=== PATIENT | male | born 1950 | race Caucasian/White ===

== ENCOUNTER 2018-07-19 07:09 | Inpatient (IN) | payer OTHER ==
[~2018-07-19] VITALS: Ht 182.9 cm; Wt 105.9 kg
[~2018-07-19 07:09] MED LIST: BUPIVACAINE/PF-EPI 0.5% 1:200K ONE; CITA10TA4 PO; LISI40TA PO; moringa PO
[2018-07-19] MEDS ORDERED: LACTATED RINGERS 1,000 ML IV SCH (07:35)
[2018-07-19] MEDS ORDERED: GABAPENTIN 300 MG CAPSULE PO ONE (08:00)
[2018-07-19] MEDS ORDERED: LIDOCAINE-MPF 1%, 2ML INFIL ONE (08:00)
[2018-07-19] MEDS ORDERED: ACETAMINOPHEN 500 MG TABLET PO ONE (08:00)
[2018-07-19] MEDS ORDERED: FENTANYL PF 250 MCG/5ML ONE (08:21)
[2018-07-19] MEDS ORDERED: [UNRECOGNIZED DRUG - OTHER] ONE (08:41)
[2018-07-19] MEDS ORDERED: MEPERIDINE/PF 25MG/0.5ML IVPush PRN (10:00)
[2018-07-19] MEDS ORDERED: LABETALOL 5MG/ML, 20ML IV PRN (10:00)
[2018-07-19] MEDS ORDERED: PROMETHAZINE 25 MG/ML, 1ML IV PRN (10:00)
[2018-07-19] MEDS ORDERED: OXYcodone 5 MG/5 ML ORAL.SOL UDC PO PRN (10:00)
[2018-07-19] MEDS ORDERED: DIPHENHYDRAMINE 50 MG/ML, 1ML IVPush PRN (10:00)
[2018-07-19] MEDS ORDERED: hydrALAzine 20 MG/ML, 1ML IV PRN (10:00)
[2018-07-19] MEDS ORDERED: HYDROmorphone 1 MG/ML, 1ML IV PRN (10:00)
[2018-07-19] MEDS ORDERED: PROCHLORPERAZINE 5 MG/ML, 2ML IV PRN (10:00)
[2018-07-19] MEDS ORDERED: FENTANYL PF 100 MCG/2ML IV PRN (10:00)
[2018-07-19] MEDS ORDERED: INDOCYANINE GREEN 25 MG VIAL ONE (10:02)
[2018-07-19] MEDS ORDERED: FENTANYL PF 100 MCG/2ML ONE ×2 (10:31→12:13)
[2018-07-19] MEDS ORDERED: CEFAZOLIN 1,000 MG ONE (10:33)
[2018-07-19] MEDS ORDERED: PROPOFOL 10 MG/ML, 20ML ONE (10:33)
[2018-07-19] MEDS ORDERED: NEOSTIGMINE 1 MG/ML, 10ML ONE (10:33)
[2018-07-19] MEDS ORDERED: SUCCINYLCHOLINE 20 MG/ML, 10ML ONE (10:33)
[2018-07-19] MEDS ORDERED: GLYCOPYRROLATE 0.2MG/1ML, 5ML ONE (10:33)
[2018-07-19] MEDS ORDERED: DEXAMETHASONE 4 MG/ML, 1ML ONE (10:33)
[2018-07-19] MEDS ORDERED: ONDANSETRON 2MG/ML, 2ML ONE (10:33)
[2018-07-19] MEDS ORDERED: ROCURONIUM 10MG/ML,5ML ONE (10:33)
[2018-07-19] MEDS ORDERED: OXYcodone 5 MG/5 ML ORAL.SOL UDC ONE (12:13)
[2018-07-19] MEDS ORDERED: ONDANSETRON 2MG/ML, 2ML IV PRN (13:30)
[2018-07-19] MEDS ORDERED: MORPHINE SULFATE 4 MG/ML, 1ML IV PRN (13:30)
[2018-07-19] MEDS ORDERED: ONDANSETRON ODT 4 MG PO PRN (13:30)
[2018-07-19 14:15] VITALS: BP 173/89
[2018-07-19] MEDS: ACETAMINOPHEN 500 MG TABLET PO SCH ×2 (14:54→20:33)
[2018-07-19] MEDS: LACTATED RINGERS 1,000 ML IV SCH (14:54)
[2018-07-19] MEDS: KETOROLAC 30 MG/1 ML IV SCH ×2 (14:54→20:33)
[2018-07-19 20:02] VITALS: BP 133/75
[2018-07-19 23:12] VITALS: BP 123/68
[2018-07-19] MEDS: OXYcodone IR 5MG TABLET PO PRN (23:54)
[2018-07-20] MEDS: ACETAMINOPHEN 500 MG TABLET PO SCH ×4 (02:59→20:30)
[2018-07-20] MEDS: KETOROLAC 30 MG/1 ML IV SCH ×2 (02:59→08:32)
[2018-07-20] MEDS: OXYcodone IR 5MG TABLET PO PRN ×4 (03:06→23:24)
[2018-07-20 03:57] VITALS: BP 127/65
[2018-07-20 05:15] LABS: BASOPHILS # (AUTO) 0.02 x10^3/uL (0-0.1); BASOPHILS % (AUTO) 0 % (0-1); EOSINOPHILS # (AUTO) 0.02 x10^3/uL (0-0.4); EOSINOPHILS % (AUTO) 0 % (1-7); LYMPHOCYTES % (AUTO) 12 % (22-44); MD NO; MEAN CORPUSCULAR HEMOGLOBIN 32.8 pg (27.5-34.5); MEAN CORPUSCULAR HGB CONC 34.4 g/dL (33.2-36.2); MEAN CORPUSCULAR VOLUME 95.4 fL (81-97); MEAN PLATELET VOLUME 8.5 fL (7.4-10.4); MONOCYTES # (AUTO) 1.01 x10^3/uL (0.2-0.8); MONOCYTES % (AUTO) 10 % (2-9); NEUTROPHILS # (AUTO) 7.92 x10^3/uL (1.8-6.8); NEUTROPHILS % (AUTO) 78 % (42-75); PLATELET COUNT 203 x10^3/uL (130-400); RED CELL DISTRIBUTION WIDTH 13.7 % (9.4-14.8)
[2018-07-20 05:17] LABS: ANION GAP 8 mmol/L (5-15); CALCIUM 8.3 mg/dL (8.5-10.1); CHLORIDE 109 mmol/L (98-107)
[2018-07-20 05:18] LABS: CREATININE 1.17 mg/dL (0.7-1.3)
[2018-07-20 06:58] VITALS: BP 127/69
[2018-07-20] MEDS: LISINOPRIL 10 MG TABLET PO SCH (08:32)
[2018-07-20] MEDS: LACTATED RINGERS 1,000 ML IV SCH (10:47)
[2018-07-20 14:16] VITALS: BP 111/60
[2018-07-20 19:22] VITALS: BP 114/65
[2018-07-20] MEDS ORDERED: OMEPRAZOLE 20 MG CAPSULE.DR PO SCH (21:00)
[2018-07-21 00:50] VITALS: BP 120/73
[2018-07-21] MEDS: ACETAMINOPHEN 500 MG TABLET PO SCH ×3 (02:22→15:00)
[2018-07-21] MEDS: OXYcodone IR 5MG TABLET PO PRN ×3 (02:23→14:26)
[2018-07-21] MEDS: LACTATED RINGERS 1,000 ML IV SCH (06:00)
[2018-07-21 07:30] VITALS: BP 154/71
[2018-07-21] MEDS: LISINOPRIL 10 MG TABLET PO SCH (07:45)
[2018-07-21] MEDS ORDERED: OXYC-302 PO (14:25)
[2018-07-21] MEDS ORDERED: POLY17PO5 PO (14:29)
[2018-07-21 14:50] VITALS: BP 134/75
== END 2018-07-21 15:00 | disposition home or self-care (01) | DRG 330 ==
LOC: ORIP 07:09 → 4NOR 12:40 → DCLOUNGE 07-21 14:33
PROVIDERS: ADMIT Surgery; ATTEND Surgery
PROC: 0WQF0ZZ Repair Abdominal Wall, Open Approach (ICD-10-PCS; 2018-07-19)
PROC: 8E0W0CZ Robotic Assisted Procedure of Trunk Region, Open Approach (ICD-10-PCS; 2018-07-19)
PROC: 0DTN0ZZ Resection of Sigmoid Colon, Open Approach (ICD-10-PCS; principal; 2018-07-19 09:00)
DX: K57.92 Diverticulitis of intestine, part unspecified, without perforation or abscess without bleeding (principal); E44.0 Moderate protein-calorie malnutrition; K42.9 Umbilical hernia without obstruction or gangrene; I10 Essential (primary) hypertension; M19.90 Unspecified osteoarthritis, unspecified site; Z87.891 Personal history of nicotine dependence; Z68.31 Body mass index [BMI] 31.0-31.9, adult; Z91.013 Allergy to seafood; Z85.038 Personal history of other malignant neoplasm of large intestine
CPT/HCPCS: 36415; 80048; 85025; 86850; 86900; 88307; G0378; J0690; J1100; J1885; J2405; J2704; J2710; J3010; J3490; J0330; J7120